=== PATIENT | male | born 1995 | race Caucasian/White ===

== ENCOUNTER 2019-07-01 16:47 | Emergency (ER) | payer BC ==
[2019-07-01] MEDS ORDERED: NA CHLORIDE 0.9% 0 ML ONE (17:22)
[2019-07-01] MEDS ORDERED: IBUPROFEN 400 MG TAB ONE (17:22)
--- NOTE | 2019-07-01 18:09 | EDPHYS ---
Physician Documentation [facility] Name: Rosalino Child Age: 24 yrs Sex: Male : 1995 Arrival Date: 07/01/2019 Time: 16:52 Bed 14 Private MD: ED Physician Sharad Ortega HPI: 07/01 17:25 This 24 yrs old Male presents to ER via Ambulatory with complaints of Sore pm1 Throat, Mouth Swelling. 18:17 The patient presents with sore throat. The patient describes throat pain as raw, pm1 scratchy. Onset: The symptoms/episode began/occurred 3 day(s) ago. Severity of symptoms: in the emergency department the symptoms are actually worse, swelling of gums and pain in teeth. Modifying factors: The symptoms are alleviated by nothing, the symptoms are aggravated by foods, swallowing, Denies contact with similarly ill indivduals. Associated signs and symptoms: Pertinent negatives chills, cough, fever, flu-like symptoms, headache. The patient has been recently seen by a physician: with similar presenting complaints, at a clinic and was diagnosed with strep throat without a swab. Was given Augmentin. Today reports pain and swelling to gums and pain to teeth with eating. Historical: - Allergies: 16:56 No Known Allergies; sv - PMHx: 16:56 None; sv - PSHx: 16:56 None; sv - Immunization history:: Adult Immunizations up to date. - Social history:: Smoking status: Patient/guardian denies using tobacco. - Ebola Screening: : Patient negative for fever greater than or equal to 101.5 degrees Fahrenheit, and additional compatible Ebola Virus Disease symptoms Patient denies exposure to infectious person Patient denies travel to an Ebola-affected area in the 21 days before illness onset No symptoms or risks identified at this time. ROS: 18:17 Constitutional: Negative for fever, chills, and weight loss, Eyes: Negative for injury, pm1 pain, redness, and discharge. 18:17 Neck: Negative for injury, pain, and swelling, Cardiovascular: Negative for chest pain, palpitations, and edema, Respiratory: Negative for shortness of breath, cough, wheezing, and pleuritic chest pain, Abdomen/GI: Negative for abdominal pain, nausea, vomiting, diarrhea, and constipation, Back: Negative for injury and pain, MS/Extremity: Negative for injury and deformity, Skin: Negative for injury, rash, and discoloration, Neuro: Negative for headache, weakness, numbness, tingling, and seizure. 18:17 ENT: Positive for dental pain, Gum pain sore throat. Exam: 18:17 Constitutional: This is a well developed, well nourished patient who is awake, alert, pm1 and in no acute distress. Head/Face: Normocephalic, atraumatic. Eyes: Pupils equal round and reactive to light, extra-ocular motions intact. Lids and lashes normal. Conjunctiva and sclera are non-icteric and not injected. Cornea within normal limits. Periorbital areas with no swelling, redness, or edema. 18:17 Chest/axilla: Normal chest wall appearance and motion. Nontender with no deformity. No lesions are appreciated. Cardiovascular: Regular rate and rhythm with a normal S1 and S2. No gallops, murmurs, or rubs. Normal PMI, no JVD. No pulse deficits. 18:17 Respiratory: Lungs have equal breath sounds bilaterally, clear to auscultation and percussion. No rales, rhonchi or wheezes noted. No increased work of breathing, no retractions or nasal flaring. Back: No spinal tenderness. No costovertebral tenderness. Full range of motion. Skin: Warm, dry with normal turgor. Normal color with no rashes, no lesions, and no evidence of cellulitis. MS/ Extremity: Pulses equal, no cyanosis. Neurovascular intact. Full, normal range of motion. 18:17 ENT: External ear(s): are unremarkable, Ear canal(s): TM's: are normal, Nose: is normal, Mouth: Gums: reddened, swollen, with heavy amounts of plaque diffusely across all teeth consistent with gingivitis, Tongue: displays thrush, Dental exam: dental caries, that is mild, diffusely. 18:17 Neck: External neck: is normal, Lymph nodes: lymphadenopathy is appreciated. 18:17 Neuro: Orientation: is normal, Motor: moves all fours. Vital Signs: 16:56 BP 131 / 74; Pulse 72; Resp 18; Temp 99.6(O); Pulse Ox 100% ; Weight 77.11 kg; Height 6 sv ft. 2 in. (187.96 cm); 16:56 Body Mass Index 21.83 (77.11 kg, 187.96 cm) sv MDM: 17:08 Patient medically screened. pm1 18:05 Data reviewed: vital signs. Data interpreted: Pulse oximetry: on room air is 100 %. pm1 Interpretation: normal. Counseling: I had a detailed discussion with the patient and/or guardian regarding: the historical points, exam findings, and any diagnostic results supporting the discharge/admit diagnosis. 07/01 17:21 Order name: Strep; Complete Time: 18:06 pm1 07/01 18:03 Order name: Throat Culture EDMS Administered Medications: 17:42 Drug: Ibuprofen 600 mg Route: PO; em 18:33 Follow up: Response: No adverse reaction; Pain is decreased em 17:43 Not Given (Patient Refused): NS 0.9% 1000 ml IV at 1000 ml once em Disposition: 19:00 Co-signature as Attending Physician, Sharad Ortega MD. rn Disposition: 07/01/19 18:08 Discharged to Home. Impression: Acute pharyngitis, Gingivitis and periodontal diseases, Candidiasis. - Condition is Stable. - Discharge Instructions: Gingivitis, Pharyngitis, Thrush, Adult. - Prescriptions for Nystatin 100,000 unit/mL Oral Suspension - take 5 milliliter by ORAL route every 6 hours; 120 milliliter. Tramadol 50 mg Oral Tablet - take 1 tablet by ORAL route every 8 hours as needed; 12 tablet. - Medication Reconciliation Form, Thank You Letter, Antibiotic Education, Prescription Opioid Use form. - Follow up: Emergency Department; When: As needed; Reason: Worsening of condition. Follow up: Private Physician; When: 2 - 3 days; Reason: Recheck today's complaints, Continuance of care, Re-evaluation by your physician. - Problem is new. - Symptoms have improved. Signatures: Dispatcher [employer] EDMS Li Campos RN RN Phil Saunders, DENTAL SURGEON DENTAL SURGEON Sharad Mccloud MD MD rn Marinas, Patrick, B[employer] PHYSICIAN RELATIONS REPRESENTATIVE pm1 Corrections: (The following items were deleted from the chart) 17:37 17:22 BASIC METABOLIC PANEL+C.LAB.BRZ ordered. EDMS EDMS 17:37 17:22 Group A Streptococcus Rapid Sc+BA.LAB.BRZ ordered. EDMS EDMS 17:37 17:22 CBC+H.LAB.BRZ ordered. EDMS EDMS 17:43 17:21 IV Saline Lock ordered. pm1 em 18:09 18:08 07/01/2019 18:08 Discharged to Home. Impression: Acute pharyngitis; Gingivitis pm1 and periodontal diseases. Condition is Stable. Forms are Medication Reconciliation Form, Thank You Letter, Antibiotic Education, Prescription Opioid Use. pm1 18:15 18:09 07/01/2019 18:08 Discharged to Home. Impression: Acute pharyngitis; Gingivitis pm1 and periodontal diseases. Condition is Stable. Forms are Medication Reconciliation Form, Thank You Letter, Antibiotic Education, Prescription Opioid Use. Follow up: Emergency Department; When: As needed; Reason: Worsening of condition. Follow up: Private Physician; When: 2 - 3 days; Reason: Recheck today's complaints, Continuance of care, Re-evaluation by your physician. Problem is new. Symptoms have improved. pm1 18:33 18:15 07/01/2019 18:08 Discharged to Home. Impression: Acute pharyngitis; Gingivitis em and periodontal diseases; Candidiasis. Condition is Stable. Forms are Medication Reconciliation Form, Thank You Letter, Antibiotic Education, Prescription Opioid Use. Follow up: Emergency Department; When: As needed; Reason: Worsening of condition. Follow up: Private Physician; When: 2 - 3 days; Reason: Recheck today's complaints, Continuance of care, Re-evaluation by your physician. Problem is new. Symptoms have improved. pm1
--- NOTE | 2019-07-01 18:09 | ER ---
Nurse's Notes [facility] Name: Rosalino Child Age: 24 yrs Sex: Male : 1995 Arrival Date: 07/01/2019 Time: 16:52 Bed 14 Private MD: Diagnosis: Acute pharyngitis;Gingivitis and periodontal diseases;Candidiasis Presentation: 07/01 16:54 Presenting complaint: Patient states: fever, sore throat Wednesday, dx with strep but sv not tested; sent w/ Amox/clav (started Wed) and started having gum swelling/throat swelling/neck pain. Transition of care: patient was not received from another setting of care. Onset of symptoms was June 28, 2019. Risk Assessment: Do you want to hurt yourself or someone else? Patient reports no desire to harm self or others. Care prior to arrival: Medication(s) given: Tylenol, taken \T\ 1300. 16:54 Method Of Arrival: Ambulatory sv 16:54 Acuity: DARY 3 sv 17:05 Initial Sepsis Screen: Does the patient meet any 2 criteria? No. Patient's initial em sepsis screen is negative. Does the patient have a suspected source of infection? No. Patient's initial sepsis screen is negative. Historical: - Allergies: 16:56 No Known Allergies; sv - PMHx: 16:56 None; sv - PSHx: 16:56 None; sv - Immunization history:: Adult Immunizations up to date. - Social history:: Smoking status: Patient/guardian denies using tobacco. - Ebola Screening: : Patient negative for fever greater than or equal to 101.5 degrees Fahrenheit, and additional compatible Ebola Virus Disease symptoms Patient denies exposure to infectious person Patient denies travel to an Ebola-affected area in the 21 days before illness onset No symptoms or risks identified at this time. Screenin:05 Abuse screen: Denies threats or abuse. Nutritional screening: No deficits noted. em Tuberculosis screening: No symptoms or risk factors identified. Fall Risk None identified. Assessment: 17:05 General: Appears in no apparent distress. uncomfortable, Behavior is calm, cooperative, em Denies fever. Pain: Complains of pain in throat Pain currently is 10 out of 10 on a pain scale. Neuro: Level of Consciousness is awake, alert, obeys commands, Oriented to person, place, time, situation, Appropriate for age. Cardiovascular: Capillary refill < 3 seconds Patient's skin is warm and dry. Respiratory: Airway is patent Respiratory effort is even, unlabored, Respiratory pattern is regular, symmetrical, Breath sounds are clear bilaterally. Denies cough. EENT: Nares are clear Oral mucosa is moist. Throat has patchy exudate swelling around gums noted. Reports pain when swallowing. Derm: Skin is intact, is healthy with good turgor, Skin is pink, warm \T\ dry. Musculoskeletal: Capillary refill < 3 seconds, Range of motion: intact in all extremities. 17:05 Reassessment: I agree with assessment completed by Phil Oconnor LVN . aa5 17:40 Reassessment: refused IV and labs, provider notified. em 17:46 Reassessment:. em Vital Signs: 16:56 BP 131 / 74; Pulse 72; Resp 18; Temp 99.6(O); Pulse Ox 100% ; Weight 77.11 kg; Height 6 sv ft. 2 in. (187.96 cm); 16:56 Body Mass Index 21.83 (77.11 kg, 187.96 cm) sv ED Course: 16:52 Patient arrived in ED. mr 16:56 Triage completed. sv 16:58 Arm band placed on. sv 17:05 Patient has correct armband on for positive identification. Bed in low position. Call em light in reach. Adult w/ patient. 17:08 Gasper Villegas, VOCAL MUSIC INSTRUCTOR is PHCP. pm1 17:08 Sharad Ortega MD is Attending Physician. pm1 17:10 Phil Oconnor LVN is Primary Nurse. em 18:17 No provider procedures requiring assistance completed. Patient did not have IV access em during this emergency room visit. Administered Medications: 17:42 Drug: Ibuprofen 600 mg Route: PO; em 18:33 Follow up: Response: No adverse reaction; Pain is decreased em 17:43 Not Given (Patient Refused): NS 0.9% 1000 ml IV at 1000 ml once em Outcome: 18:08 Discharge ordered by . pm1 18:17 Discharged to home ambulatory, with family. em 18:17 Condition: good 18:17 Discharge instructions given to patient, family, Instructed on discharge instructions, follow up and referral plans. medication usage, Demonstrated understanding of instructions, follow-up care, medications, Prescriptions given X 2. 18:33 Patient left the ED. em Signatures: Li Campos RN RN Argenis Vasquez mr Oconnor, Phil, SUPERINTENDENT [employer] SUPERINTENDENT [employer] em Pamella Huff RN RN aa5 Gasper Villegas, VOCAL MUSIC INSTRUCTOR VOCAL MUSIC INSTRUCTOR pm1 Corrections: (The following items were deleted from the chart) 16:57 16:54 Care prior to arrival: None. sv sv 16:58 16:56 Temp 99.6F Oral; 77.11 kg; Height 6 ft. 2 in.; BMI: 21.8; sv sv 16:58 16:56 Pulse 72bpm; Resp 18bpm; Pulse Ox 100%; Temp 99.6F Oral; 77.11 kg; Height 6 ft. 2 sv in.; BMI: 21.8; sv
[2019-07-01 18:57] VITALS: BP 131/74; TEMP 99.6; O2SAT 100
== END 2019-07-01 18:33 | disposition home or self-care (01) ==
LOC: ER 16:47
DX: J02.9 Acute pharyngitis, unspecified (principal); K05.10 Chronic gingivitis, plaque induced; K05.6 Periodontal disease, unspecified; B37.9 Candidiasis, unspecified
CPT/HCPCS: 87070; 87081; 99283; J7030